=== PATIENT | male | born 1960 | race Caucasian/White ===

== ENCOUNTER 2018-05-08 08:35 | Day surgery (SDC) | payer OTHER ==
[~2018-05-08 08:35] MED LIST: Lactated Ringers 1,000 ML IV SCH
[2018-05-08] MEDS ORDERED: Albuterol/Ipratropium 3.0-0.5 MG/3 ML Neb Soln NEB ONE (10:10)
[2018-05-08] MEDS ORDERED: Propofol 200 MG/20 ML SDV ONE ×3 (10:19→11:18)
[2018-05-08] MEDS ORDERED: fentaNYL 100 MCG/2 ML SDV ONE (10:19)
--- NOTE | 2018-05-08 13:14 | OR ---
PREOPERATIVE DIAGNOSIS: Positive Cologuard test. POSTOPERATIVE DIAGNOSES: Colonic polyps x7, removed; sigmoid diverticulosis. PROCEDURE PROPOSED: Total flexible colonoscopy. PROCEDURE DONE: Total flexible colonoscopy with hot snare polypectomy x2. Cold biopsy forceps polypectomy x5. INDICATIONS: This is a 57-year-old gentleman who comes in for recommended colonoscopy due to a positive Cologuard test. He apparently has had 1 previous colonoscopy, but it was like 20 years ago. He denies any symptomatology. He also has a family history of mother with polyps. TECHNIQUE: The patient was brought to the endoscopy suite, placed in left lateral decubitus position. He was sedated per [facility] with propofol. The flexible video colonoscope was then passed transanally and under visualization advanced to the cecum. In the cecal area, he had a moderate-sized polyp removed by hot snare technique and I had to grab it with the snare because it was too large to go through the scope. I then found another polyp at 60 cm and this also was removed by hot snare technique and retrieved with suction. I then re- grasped the larger polyp with the snare, brought it back, and found some more polyps, 2 at 50 cm were removed by cold biopsy forceps technique, regrasped the polyp, and at that point, I brought it all the way out, went back in with the scope, and found 3 more polyps, 1 at 40 and a couple at 20 cm. The last 3 were removed by cold biopsy forceps technique. He had some mild sigmoid diverticulosis and the rectum was normal. No other worrisome abnormalities were noted. FINAL IMPRESSION: 1. Colonic polyps x7, removed. 2. Mild sigmoid diverticulosis. PLAN: He will be sent a letter to pathology report. I felt due to the multitude of polyps, he should have a 3-year followup exam and probably every 5 years thereafter. SCM: 05/08/2018 11:25:36 MODL: 05/08/2018 11:51:01 /[id number]
== END 2018-05-08 12:45 | disposition home or self-care (01) ==
LOC: VM.SDS 08:35
PROVIDERS: ATTEND Surgery
DX: R19.5 Other fecal abnormalities (principal); D12.4 Benign neoplasm of descending colon; D12.0 Benign neoplasm of cecum; D12.5 Benign neoplasm of sigmoid colon; K63.5 Polyp of colon; K57.30 Diverticulosis of large intestine without perforation or abscess without bleeding; J45.20 Mild intermittent asthma, uncomplicated; F17.220 Nicotine dependence, chewing tobacco, uncomplicated; K21.9 Gastro-esophageal reflux disease without esophagitis; G47.33 Obstructive sleep apnea (adult) (pediatric); Z83.71 Family history of colonic polyps; Z99.89 Dependence on other enabling machines and devices; Z79.899 Other long term (current) drug therapy; Z68.31 Body mass index [BMI] 31.0-31.9, adult; Z91.018 Allergy to other foods
CPT/HCPCS: 94640; J2704; J3010; J7120; J7620-GY